=== PATIENT | female | born 1955 | race Caucasian/White ===

== ENCOUNTER 2022-08-19 14:18 | Outpatient (CLI) | payer MEDICARE, OTHER ==
--- NOTE | 2022-08-20 09:06 | DEXA Report ---
PROCEDURE: Dexa Spine and/or Hip INDICATIONS: POST MENOPAUSAL TECHNIQUE: Dual energy x-ray absorptiometry (DXA) was performed on a [employer] System. Regions measur ed are the AP Spine, femoral neck, and if needed forearm. COMPARISON: Not available. FINDINGS: Lumbar Spine: Bone Mineral Density 1.373 g/cm/cm,T score 1.6. Left Femoral Neck: Bone Mineral Density 0.810 g/cm/cm, T score -1.6. Left Hip: Bone Mineral Density 0.852 g/cm/cm,T score -1.2. Left Forearm: Bone Mineral Density 0.837 g/cm/cm, T score -0.4. (T score greater or equal to -1.0: NORMAL) (T score from -1.1 to -2.4: OSTEOPENIA) (T score less than or equal to -2.5 to: OSTEOPOROSIS) Impression: By WHO criteria, this patient has osteopenia. Patients with diagnosis of osteoporosis or osteopenia should have regular bone mineral density assess ment. For those eligible for Medicare, routine testing is allowed once every 2 years. Testing frequ ency can be increased for patients who have rapidly progressing disease or for those who are receivin g medical therapy to restore bone mass. Reviewed by: Attila Robert MD on 08/20/2022 9:04 AM PDT Approved by: Attila Robert MD on 08/20/2022 9:04 AM PDT Station ID: [id number]
== END 2022-08-19 14:19 | disposition home or self-care (01) ==
LOC: DI 14:18
PROVIDERS: ATTEND Internal Medicine
DX: M85.89 Other specified disorders of bone density and structure, multiple sites (principal)

== ENCOUNTER 2022-11-20 10:53 | Outpatient (CLI) | payer MEDICARE, OTHER ==
--- NOTE | 2022-11-20 16:34 | XRAY Report ---
PROCEDURE: Hand 3 View BILAT INDICATIONS: OSTEOARTHRITIS IN HANDS TECHNIQUE: 3 views of each hand(s) acquired. COMPARISON: None. FINDINGS: Bones: No acute fractures. Moderately severe scattered arthritic changes predominantly in the interp halangeal joints. Complete joint space loss, subcortical cystic changes, and ankylosis of the left se cond PIP joint space with mild valgus deformity. Severe joint space loss, spurring, and mild subluxat ion of all DIP joints and PIP joints, Most notably at the left third PIP joint. There is joint space loss without significant hypertrophic osteophytosis at both first CMC joints, le ft worse than right. There is relative sparing of the first digit on both hands. Soft tissues: There is soft tissue swelling variably in the digits, right fourth PIP, right third an d second DIP, second PIP, and diffusely along the left second and third digits. IMPRESSION: 1. Severe erosive osteoarthritis throughout both hands, predominantly and most severely involving the left second and third digits. Reviewed by: Sharon Willingham MD on 11/20/2022 4:32 PM PDT Approved by: Sharon Willingham MD on 11/20/2022 4:32 PM PDT Station ID: [id number]
--- NOTE | 2022-11-20 16:35 | XRAY Report ---
PROCEDURE: Wrist 3 View BILAT INDICATIONS: OSTEOARTHRITIS OF WRISTS TECHNIQUE: 3 views of the wrist were acquired. COMPARISON: None. FINDINGS: Bones: There is joint space loss and subluxation laterally at the first CMC joints, left worse than right. Oblique images demonstrate prominent medial osteophytes off the trapezium. Probable subcortica l cystic changes. Bone alignment is otherwise normal. There is mild joint space loss at the triscaphe articulation, right worse than left. Soft tissues: No suspicious soft tissue calcifications or masses. IMPRESSION: Joint space loss and subluxation at the first CMC joints predominantly, left worse than right. Reviewed by: Sharon Willingham MD on 11/20/2022 4:34 PM PDT Approved by: Sharon Willingham MD on 11/20/2022 4:34 PM PDT Station ID: [id number]
== END 2022-11-20 10:54 | disposition home or self-care (01) ==
LOC: DI 10:53
PROVIDERS: ATTEND Internal Medicine
DX: M19.041 Primary osteoarthritis, right hand (principal); M19.042 Primary osteoarthritis, left hand; M18.0 Bilateral primary osteoarthritis of first carpometacarpal joints; S63.041A Subluxation of carpometacarpal joint of right thumb, initial encounter; S63.042A Subluxation of carpometacarpal joint of left thumb, initial encounter

== ENCOUNTER 2023-08-21 13:13 | Outpatient (CLI) | payer MEDICARE, OTHER ==
--- NOTE | 2023-08-21 21:01 | CT Report ---
PROCEDURE: Sinus INDICATIONS: SINUSITIS TECHNIQUE: Noncontrast 3.0 mm axial images acquired from the frontal sinuses to the mid-sella, with coronal and sagittal reformats. For radiation dose reduction, the following was used: automated exposure control , adjustment of mA and/or kV according to patient size. COMPARISON: None. FINDINGS: Image quality: Excellent. Sinuses: Mucosal thickening with superimposed. Mucous retention cysts versus polyps are present promi nently in the maxillary sinuses bilaterally. Minimal scattered areas of mucosal thickening are presen t in the ethmoid and frontal sinuses as well as mild mucosal thickening in the right sphenoid sinus. No superimposed fluid levels. Ostiomeatal Complexes: Ostiomeatal complexes are patent. Miscellaneous: Visualized intra-orbital contents are normal. No pricilla bullosa. No nasal septal d eviation. No paradoxical turbinates. IMPRESSION: Mucosal thickening most prominent in the maxillary sinuses bilaterally. No fluid levels. Ostiomeatal complexes are patent. Reviewed by: Dahlia Flores MD on 08/21/2023 8:59 PM PDT Approved by: Dahlia Flores MD on 08/21/2023 8:59 PM PDT Station ID: [id number]
== END 2023-08-21 13:14 | disposition home or self-care (01) ==
LOC: DI 13:13
PROVIDERS: ATTEND Physician Assistant
DX: J32.8 Other chronic sinusitis (principal)

== ENCOUNTER 2023-10-24 14:30 | Outpatient (CLI) | payer MEDICARE, OTHER ==
--- NOTE | 2023-10-26 22:56 | Ultrasound Report ---
PROCEDURE: Duplex Ext Veins Left INDICATIONS: L CALF PAIN TECHNIQUE: Real-time imaging, as well as color and pulse Doppler interrogation, were performed of th e lower extremity deep veins from the inguinal ligament to the popliteal fossa. Attempted visualizati on of the calf veins was performed. COMPARISON: None. FINDINGS: The deep veins are normally compressible, and free of intraluminal thrombus. Color and pu lse Doppler demonstrate normal phasic intraluminal flow. There is normal augmentation response to di stal compression maneuver. IMPRESSION: No deep venous thrombosis of the visualized lower extremity. Incidental Gomez's cyst Reviewed by: Chepe Riggs MD on 10/26/2023 9:55 PM SHERRILL Approved by: Chepe Riggs MD on 10/26/2023 9:55 PM [id number] Station ID: [id number]
== END 2023-10-24 14:31 | disposition home or self-care (01) ==
LOC: DI 14:30
PROVIDERS: ATTEND Internal Medicine
DX: M79.605 Pain in left leg (principal); M71.22 Synovial cyst of popliteal space [Baker], left knee